=== PATIENT | male | born 1940 | race Caucasian/White ===

== ENCOUNTER → 2017-07-21 | Outpatient (CLI) | payer OTHER, MEDICAID | LOC: BMCIMAGING 08:24 | PROVIDERS: ATTEND Registered Nurse | DX: K40.90 Unilateral inguinal hernia, without obstruction or gangrene, not specified as recurrent (principal) ==

== ENCOUNTER → 2017-10-10 | Outpatient (CLI) | payer OTHER, MEDICAID ==
[~2017-10-10] MED LIST: IOPAMIDOL (ISOVUE-300) 100 ML BTL ONE
== END ==
LOC: FIMAGING 11:30
PROVIDERS: ATTEND Surgery
DX: K57.30 Diverticulosis of large intestine without perforation or abscess without bleeding (principal); K76.9 Liver disease, unspecified
CPT/HCPCS: 74177; Q9967

== ENCOUNTER → 2017-11-29 | Outpatient (CLI) | payer OTHER, MEDICAID | LOC: BMCIMAGING 10:59 | PROVIDERS: ATTEND Family Medicine | DX: M54.2 Cervicalgia (principal); M43.12 Spondylolisthesis, cervical region; M47.892 Other spondylosis, cervical region; M53.83 Other specified dorsopathies, cervicothoracic region ==

== ENCOUNTER 2018-01-05 09:24 | Day surgery (SDC) | payer MEDICAID, OTHER ==
[2018-01-05] MEDS ORDERED: LR 1,000 ML IV ONE (10:12)
[2018-01-05] MEDS ORDERED: LIDOCAINE 1% 2 ML INJ ID PRN (10:12)
[2018-01-05] MEDS ORDERED: LIDOCAINE 1% 300 MG/30 ML SDV ONE (11:15)
[2018-01-05] MEDS ORDERED: BUPIVACAINE 0.25% 30 ML SDV ONE (11:15)
--- NOTE | 2018-01-05 11:26 | PDANEPAE ---
ANE Past Medical History - Cardiovascular History Hx Hypertension: No Hx Arrhythmias: No Hx Chest Pain: No Hx Coronary Artery / Peripheral Vascular Disease: No Hx CHF / Valvular Disease: No Hx Palpitations: No Cardiovascular History Comment: AORTIC REGURG - Pulmonary History Hx COPD: No Hx Asthma/Reactive Airway Disease: No Hx Recent Upper Respiratory Infection: No Hx Oxygen in Use at Home: No Hx Sleep Apnea: No Sleep Apnea Screening Result - Last Documented: Positive Pulmonary History Comment: HX - POS CRISTO - NO CPAP - Neurologic History Hx Cerebrovascular Accident: No Hx Seizures: No Hx Dementia: No - Endocrine History Hx Diabetes: No - Renal History Hx Renal Disorders: No - Liver History Hx Hepatic Disorders: No - Neurological & Psychiatric Hx Hx Neurological and Psychiatric Disorders: No Neurological / Psychiatric History Comment: BIPOLAR - Cancer History Hx Cancer: No - Congenital Disorder History Hx Congenital Disorders: No - GI History Hx Gastrointestinal Disorders: Yes Gastrointestinal History Comment: acid reflux. ibs - Other Health History Other Health History: OSTEOARTHRITIS - Chronic Pain History Chronic Pain: No - Surgical History Prior Surgeries: diaphragm surgery. ing hernia r ANE Review of Systems Review of Systems: - Exercise capacity METS (RN): 5 METS ANE Patient History - Allergies Allergies/Adverse Reactions: No Known Allergies Allergy (Unverified 01/05/18 10:15) - Home Medications Home Medications: Herbals/Supplements -Info Only 01/04/18 [Last Taken 01/04/18 18:00] Coleta Carbonate 01/04/18 [Last Taken 01/04/18 18:00] Turmeric 01/04/18 [Last Taken 01/04/18 18:00] - NPO status NPO Since - Liquids (Date): 01/04/18 NPO Since - Liquids (Time): 18:00 NPO Since - Solids (Date): 01/04/18 NPO Since - Solids (Time): 18:00 - Smoking Hx Smoking Status: Former smoker - Family Anes Hx Family Hx Anesthesia Complications: neg ANE Labs/Vital Signs - Vital Signs Blood Pressure: 126/60 Heart Rate: 43 Respiratory Rate: 18 O2 Sat (%): 96 Height: 172.72 cm Weight: 66.678 kg ANE Physical Exam - Airway Neck exam: decreased ROM Mallampati Score: Class 3 Mouth exam: poor dentition - Pulmonary Pulmonary: no respiratory distress - Cardiovascular Cardiovascular: regular rate and rhythym - ASA Status ASA Status: III ANE Anesthesia Plan Anesthesia Plan: general endotracheal anesthesia
[2018-01-05] MEDS ORDERED: ROCURONIUM 50 MG/5 ML VIAL ONE (11:31)
[2018-01-05] MEDS ORDERED: PROPOFOL 200 MG/20 ML VIAL ONE (11:31)
[2018-01-05] MEDS ORDERED: fentaNYL 100 MCG/2 ML INJ ONE ×2 (11:31→12:18)
[2018-01-05] MEDS ORDERED: LIDOCAINE 2% 100 MG/5 ML SYR ONE (11:31)
--- NOTE | 2018-01-05 11:31 | PDHPUP ---
History & Physical Update H&P update statement: This history and physical update is based on an assessment of the patient which was completed after admission or registration (within 24 hours), but prior to the surgery/procedure. H&P update: H&P reviewed & patient examined, no change in patient's condition since H&P completed
[2018-01-05] MEDS ORDERED: PHENYLEPHRINE HCL 100 MCG/ML SYR ONE (11:51)
[2018-01-05] MEDS ORDERED: ALBUTEROL 3 ML DEYVIAL IH PRN (13:53)
[2018-01-05] MEDS ORDERED: HYDROCODONE/APAP 5/325 TAB PO PRN (13:53)
[2018-01-05] MEDS ORDERED: fentaNYL 100 MCG/2 ML INJ IVP PRN (13:53)
[2018-01-05] MEDS ORDERED: NALOXONE HCL 0.4 MG/ML INJ IVP PRN ×2 (13:53)
[2018-01-05] MEDS ORDERED: ONDANSETRON 4 MG/2 ML VIAL IVP PRN (13:53)
--- NOTE | 2018-01-05 13:53 | POSTANESTH ---
Post Anesthetic Evaluation Cardiovascular Status: Similar to Pre-Op Cond Respiratory Status: Similar to Pre-op Cond. Level of Consciousness/Mental Status: Mildly Sleepy, Arousable Pain Control: Adequate, Prn Tx Ordered Nausea/Vomiting Control: Adequate, Prn Tx Ordered Complications Possibly Related to Anesthesia: None Noted
--- NOTE | 2018-01-05 15:45 | POSTOPPROG ---
Post Op Note Date of Operation: 01/05/18 Surgeon: Reg Kaufman Parking Enforcement Manager: none Anesthesiologist: Briana Anesthesia: GET(General Endotracheal) Pre-op Diagnosis: Recurrent LIH Post-op Diagnosis: same Procedure: Lap LUKE LIH repair with 3-D max mesh Inf/Abcess present in the surg proc area at time of surgery?: No EBL: Minimal Specimen(s): none
[2018-01-05 15:50] VITALS: BP 152/66
--- NOTE | 2018-01-06 20:54 | GOP ---
[f rep st] OPERATIVE REPORT DATE OF OPERATION: SURGEON: Reg Kaufman MD CEMENTER: None. ANESTHESIA: General endotracheal anesthesia was used. ANESTHESIOLOGIST: Dr. Warren. PREOPERATIVE DIAGNOSIS: Recurrent left inguinal hernia. POSTOPERATIVE DIAGNOSIS: Recurrent left inguinal hernia. PROCEDURE PERFORMED: Laparoscopic transabdominal preperitoneal inguinal hernia repair with 3DMax mes h. FINDINGS: Were previous hernia repair with mesh in the preperitoneal space and hernia underneath the previous mesh plug. SPECIMENS: There are no specimens. ESTIMATED BLOOD LOSS: 10 mL. INDICATIONS: 77-year-old gentleman presented to the hospital recurrent left inguinal hernia based on exam and CT scan. DESCRIPTION OF PROCEDURE: The patient was brought to the operating room. After induction of endotra cheal anesthesia in supine position, the abdomen prepped with chlorhexidine and draped sterilely. Ti me-out procedure was then performed according to institutional standards. Local anesthetic was infus ed in skin, subcutaneous tissues, and a field block on the left side as well as treated with trocar s ites. Open preperitoneal trocar placement is performed in standard fashion, but we were unable to us e the balloon dissector to sufficiently insufflate and dissect out the preperitoneal space because of prior mesh. It was then converted to a LUKE approach where an incision was then made in the epigast ebony region transversely. It is dissected down to the fascia, which was divided. The abdomen was ent ered and the abdomen was insufflated to 15 TOR with carbon dioxide. The peritoneal space on the left side was then taken down with electrocautery and EndoShear scissors, and the preperitoneal space was completely dissected out. The large hernia which can be seen and retracted from inside the abdomen was then completely mobilized, and the 3DMax mesh was then interposed between the hernia defect and t he hernia sac and peritoneum. Hemostasis was assured. The mesh was then tacked once laterally and o nce medially, and the peritoneal sac was then used to cover the entire mesh. After ensuring good cov erage, the patient then has needle, instrument, and sponge counts correct, and the fascia was reappro ximated at the level of the umbilicus, and the epigastric ports, and all ports were reapproximated at the skin level using 4-0 Monocryl. Dermabond was applied. The patient awakened, extubated, and amadeo en to recovery room in stable condition. No immediate complications. /[id number]/MODL
== END 2018-01-05 15:40 | disposition home or self-care (01) ==
LOC: FSGY 09:24
PROVIDERS: ATTEND Surgery
PROC: 0YU64JZ Supplement Left Inguinal Region with Synthetic Substitute, Percutaneous Endoscopic Approach (ICD-10-PCS; principal; 2018-01-05 11:30)
DX: K40.91 Unilateral inguinal hernia, without obstruction or gangrene, recurrent (principal); K57.30 Diverticulosis of large intestine without perforation or abscess without bleeding; K21.9 Gastro-esophageal reflux disease without esophagitis; F31.9 Bipolar disorder, unspecified
CPT/HCPCS: C1727; C1781; J2001; J2370; J2704; J3010

== ENCOUNTER 2018-05-09 00:02 | Emergency (ER) | payer MEDICAID, OTHER ==
[2018-05-09 00:08] VITALS: BP 140/59
--- NOTE | 2018-05-09 00:09 | EDPHY ---
H & P Stated Complaint: left upper and lower dental pain that is now resolved Time Seen by Provider: 05/09/18 00:09 HPI/ROS: HPI CHIEF COMPLAINT: Left upper dental pain. HISTORY OF PRESENT ILLNESS: Very pleasant 78-year-old male, presents emergency room with dental pain. It is now since resolved after taking 800 mg of Motrin. Patient denies any chest pain or shortness of breath, denies jaw pain. He complains of focal tenderness to the left upper posterior molar. Of note he has extensive dental decay and dental disease. Receding gumline. States his pain started around 6:00 p.m. Describes electrical shock. It is since resolved however decided come to the emergency room for further evaluation of this. Denies fever, denies trouble swallowing, denies trouble breathing. States this started at 6:00 p.m. This evening is now 1:00 a.m.. Past Medical History: Denies significant medical history Past Surgical History: Hernia repair Social History: Denies drugs alcohol tobacco. Family History: Noncontributory ROS REVIEW OF SYSTEMS: 10 Systems were reviewed and negative with the exception of the elements mentioned in the history of present illness. Exam Constitutional triage nursing summary reviewed, vital signs reviewed, awake/ alert. Eyes normal conjunctivae and sclera, EOMI, PERRLA. HENT oropharynx: Overall poor dentition, receiving gumline, no Angelo's, no a no ago, focally tender left upper posterior molar. No gumline abscess. normal inspection, atraumatic, moist mucus membranes, no epistaxis, neck supple/ no meningismus, no raccoon eyes. Respiratory clear to auscultation bilaterally, normal breath sounds, no respiratory distress, no wheezing. Cardiovascular rate normal, regular rhythm, no murmur, no edema, distal pulses normal. Gastrointestinal soft, non-tender, no rebound, no guarding, normal bowel sounds, no distension, no pulsatile mass. Genitourinary no CVA tenderness. Musculoskeletal no midline vertebral tenderness, full range of motion, no calf swelling, no tenderness of extremities, no meningismus, good pulses, neurovascularly intact. Skin pink, warm, & dry, no rash, skin atraumatic. Neurologic awake, alert and oriented x 3, AAOx3, moves all 4 extremities equally, motor intact, sensory intact, CN II-XII intact, normal cerebellar, normal vision, normal speech. Psychiatric normal mood/affect. Heme/Lymph/Immune no lymphadenopathy. Differential Diagnosis: Includes but is not limited to in a particular order apical abscess, pulpitis, dental infection, nerve inflammation Medical Decision Making: Plan for this patient placed on pen VK, [place] for pain control. Recommend follow-up with dentistry. Additionally patient understands return emergency room if worsening symptoms questions or concerns. Re-evaluation: PenVK provided. [place] Provided. Dental referral. Source: Patient - Personal History Current Tetanus/Diphtheria Vaccine: Yes Current Tetanus Diphtheria and Acellular Pertussis (TDAP): Yes - Medical/Surgical History Hx Asthma: No Hx Chronic Respiratory Disease: No Hx Diabetes: No Hx Cardiac Disease: No Hx Renal Disease: No Hx Cirrhosis: No Hx Alcoholism: No Hx HIV/AIDS: No Hx Splenectomy or Spleen Trauma: No Other PMH: hernia - Social History Smoking Status: Former smoker Constitutional: Initial Vital Signs Temperature (C) 36.6 C 05/09/18 00:03 Heart Rate 50 L 05/09/18 00:03 Respiratory Rate 16 05/09/18 00:03 Blood Pressure 140/59 H 05/09/18 00:03 O2 Sat (%) 97 05/09/18 00:03 O2 Delivery Mode Room Air Allergies/Adverse Reactions: No Known Allergies Allergy (Verified 05/09/18 00:08) Home Medications: Medication Instructions Recorded Herbals/Supplements -Info Only 01/04/18 [place] Carbonate 01/04/18 Turmeric 01/04/18 Penicillin V Potassium [Penicillin 500 mg PO BID #14 tab 05/09/18 VK] Departure - Departure Disposition: Home, Routine, Self-Care Clinical Impression: Pain, dental Condition: Good Instructions: Toothache (ED) Additional Instructions: 1. Follow-up with dentistry 2. Return to the emergency room if worsening symptoms Referrals: Jovita Hall MD [Primary Care Provider] - As per Instructions [facility] [Outside] - As per Instructions [facility] [Outside] - As per Instructions Dental [facility] [Outside] - As per Instructions Dental [facility] [Outside] - As per Instructions [facility] [Outside] - As per Instructions Prescriptions: Penicillin V Potassium [Penicillin VK] 500 mg PO BID #14 tab
[2018-05-09] MEDS ORDERED: HYDROCODONE/APAP 5/325 TAB PO ONE (00:22)
[2018-05-09] MEDS ORDERED: HYDROCOD/APAP 5/325 PREPACK#6 BTL TAKEHOME ONE (00:22)
[2018-05-09] MEDS ORDERED: PENICILLIN VK 250MG PREPACK#6 BTL TAKEHOME ONE (00:22)
[2018-05-09] MEDS ORDERED: PENICILLIN VK 500 MG TAB PO ONE (00:22)
== END 2018-05-09 00:47 | disposition home or self-care (01) ==
DX: K08.89 Other specified disorders of teeth and supporting structures (principal)

== ENCOUNTER → 2018-12-22 | Outpatient (CLI) | payer OTHER | LOC: FIMAGING 09:36 ==